=== PATIENT | female | born 2000 | race Two or more races ===

== ENCOUNTER 2023-10-09 10:32 | Outpatient (CLI) | payer OTHER | END 2023-10-09 10:34 | disposition home or self-care (01) | LOC: PRENATAL 10:32 | PROVIDERS: ATTEND Obstetrics & Gynecology Maternal & Fetal Medicine | DX: O36.80X0 Pregnancy with inconclusive fetal viability, not applicable or unspecified (principal); Z36.82 Encounter for antenatal screening for nuchal translucency; Z36.9 Encounter for antenatal screening, unspecified; O99.341 Other mental disorders complicating pregnancy, first trimester; Z3A.12 12 weeks gestation of pregnancy ==

== ENCOUNTER → 2023-12-02 | Outpatient (CLI) | payer OTHER | END | disposition home or self-care (01) | LOC: PRENATAL 08:02 | PROVIDERS: ATTEND Obstetrics & Gynecology Maternal & Fetal Medicine | DX: O44.00 Complete placenta previa NOS or without hemorrhage, unspecified trimester (principal); Z3A.20 20 weeks gestation of pregnancy ==

== ENCOUNTER 2024-01-01 15:18 | Outpatient (CLI) | payer OTHER ==
[2024-01-01 16:10] VITALS: BP 105/68
[2024-01-01] MEDS ORDERED: PRENATABS RX T1 EACH PO (16:50)
[2024-01-01] MEDS ORDERED: SERTRALINE20 MG/1 ML PO (16:51)
[2024-01-01 17:39] LABS: URINE APPEARANCE Clear; URINE BILIRRUBIN Negative (NEGATIVE); URINE BLOOD Moderate; URINE COLOR Yellow; URINE GLUCOSE Negative (NEGATIVE); URINE KETONE Trace (NEGATIVE); URINE LEUKOCYTE Trace; URINE NITRATE Negative; URINE PROTEIN Negative (NEGATIVE)
[2024-01-01 17:43] LABS: HEMATOCRIT 31.2 % (36.0-45.00); HEMOGLOBIN 10.7 g/dL (12.0-15.00); MEAN CELL VOLUME 90.1 fL (80.00-100.00); MEAN CORPUSCULAR HEMOGLOBIN 30.8 pg (27.00-32.0); MEAN CORPUSCULAR HGB CONC 34.2 g/dl (32.0-36.0); PLATELET COUNT 232 K/uL (150-450); RED BLOOD COUNT 3.46 M/uL (4.00-6.00); RED CELL DISTRIBUTION WIDTH 12.9 % (11.5-14.5)
[2024-01-01 17:43] LABS: URINE BACTERIA 1586.2 uL (0.0-1933); URINE EPITHELIAL CELLS 20.7 uL (0.0-38.8); URINE WBC 22.2 uL (0.0-23.2)
[2024-01-01 17:47] LABS: URINE CAST 0.15 uL (0.0-1.40)
[2024-01-01 18:01] LABS: INR < 0.93; PARTIAL THROMBOPLASTIN TIME 27.3 SECONDS (22.0-34.0); PROTHROMBIN TIME 10.1 SECONDS (9.0-11.5)
[2024-01-01 19:55] VITALS: BP 94/56
[2024-01-01 23:20] VITALS: BP 91/60
[2024-01-02 03:58] VITALS: BP 90/60
[2024-01-02 06:01] VITALS: BP 90/57; O2SAT 98
[2024-01-02 13:51] VITALS: BP 118/75
== END 2024-01-02 14:05 | disposition home or self-care (01) ==
LOC: OBS/DEL 15:18
PROVIDERS: ATTEND Obstetrics & Gynecology
DX: O26.893 Other specified pregnancy related conditions, third trimester (principal); O26.849 Uterine size-date discrepancy, unspecified trimester; O26.859 Spotting complicating pregnancy, unspecified trimester; O60.00 Preterm labor without delivery, unspecified trimester; O44.00 Complete placenta previa NOS or without hemorrhage, unspecified trimester; Z3A.25 25 weeks gestation of pregnancy

== ENCOUNTER 2024-01-14 08:34 | Outpatient (CLI) | payer OTHER ==
[~2024-01-14 08:34] MED LIST: PRENATABS RX T1 EACH PO; SERTRALINE20 MG/1 ML PO
== END 2024-01-14 08:35 | disposition home or self-care (01) ==
LOC: LAB 08:34
PROVIDERS: ATTEND Obstetrics & Gynecology
DX: Z34.02 Encounter for supervision of normal first pregnancy, second trimester (principal); Z3A.25 25 weeks gestation of pregnancy

== ENCOUNTER 2024-02-02 18:40 | Inpatient (IN) | payer OTHER ==
[~2024-02-02] VITALS: Ht 167.6 cm; Wt 77.6 kg
[2024-02-02 17:12] VITALS: BP 93/58
[2024-02-02] MEDS ORDERED: RINGERS SOLUTION,LACTATED 1,000 ML IV SCH (18:45)
[2024-02-02 19:03] LABS: HEMATOCRIT 32.2 % (36.0-45.00); HEMOGLOBIN 11.2 g/dL (12.0-15.00); MEAN CELL VOLUME 89.4 fL (80.00-100.00); MEAN CORPUSCULAR HGB CONC 34.7 g/dl (32.0-36.0); PLATELET COUNT 215 K/uL (150-450); RED CELL DISTRIBUTION WIDTH 12.8 % (11.5-14.5)
[2024-02-02 19:32] LABS: INR < 0.93; PARTIAL THROMBOPLASTIN TIME 26.8 SECONDS (22.0-34.0)
[2024-02-02 19:33] LABS: PH,URINE 6.5 (5.0-8.0); URINE APPEARANCE Turbid; URINE BILIRRUBIN Small (NEGATIVE); URINE BLOOD Large; URINE COLOR Red; URINE GLUCOSE Negative (NEGATIVE); URINE KETONE Negative (NEGATIVE); URINE LEUKOCYTE Small; URINE NITRATE Negative
[2024-02-02 19:36] LABS: ALBUMIN 2.9 gm/dL (3.4-5.0); BILIRUBIN TOTAL 0.25 mg/dL (0.3-1.2); CALCIUM 8.7 mg/dL (8.5-10.1); CREATININE SERUM 0.49 mg/dL (0.55-1.02); GFR 156.5; GLOBULINA 3.3 G/DL (2.4-3.5); POTASSIUM 4.02 mEq/L (3.5-5.1); TOTAL PROTEIN 6.2 gm/dL (6.4-8.2); URINE EPITHELIAL CELLS 185.7 uL (0.0-38.8); URINE RBC 35.4 uL (0.0-20.8); URINE WBC 101.4 uL (0.0-23.2)
[2024-02-02 19:55] LABS: URINE BACTERIA > 9821.5 uL (0.0-1933); URINE CAST 0.58 uL (0.0-1.40); URINE PROTEIN 100 (NEGATIVE)
[2024-02-02 19:56] LABS: URINE CRYSTALS MANY /HPF
[2024-02-03] VITALS (8 sets, daily range): BP systolic 91–99; BP diastolic 50–63; O2SAT 98
[2024-02-04 03:31] VITALS: BP 109/67
[2024-02-04 06:14] VITALS: BP 90/60; O2SAT 99
[2024-02-04 11:57] VITALS: BP 96/62; O2SAT 98
[2024-02-04 13:10] VITALS: BP 111/75
[2024-02-04 16:51] VITALS: BP 119/65
[2024-02-05 00:31] VITALS: BP 104/69
[2024-02-05 08:00] VITALS: BP 111/75
== END 2024-02-05 09:50 | disposition home or self-care (01) | DRG 831 ==
LOC: OBS/DEL 18:40 → LDR 02-03 20:35 → OB/GYN 02-03 20:35 → O/R 02-04 09:05 → LDR 02-04 09:06 → OB/GYN 02-04 10:05
PROVIDERS: Obstetrics & Gynecology; ADMIT Obstetrics & Gynecology; ATTEND Obstetrics & Gynecology
PROC: 4A1HXCZ Monitoring of Products of Conception, Cardiac Rate, External Approach (ICD-10-PCS; principal; 2024-02-03)
PROC: BY4FZZZ Ultrasonography of Third Trimester, Single Fetus (ICD-10-PCS; 2024-02-03)
PROC: BU4CZZZ Ultrasonography of Uterus and Ovaries (ICD-10-PCS; 2024-02-03)
DX: O46.8X3 Other antepartum hemorrhage, third trimester (principal); O60.03 Preterm labor without delivery, third trimester; O26.843 Uterine size-date discrepancy, third trimester; O36.8130 Decreased fetal movements, third trimester, not applicable or unspecified; O99.343 Other mental disorders complicating pregnancy, third trimester; F43.10 Post-traumatic stress disorder, unspecified; O36.63X0 Maternal care for excessive fetal growth, third trimester, not applicable or unspecified; O26.853 Spotting complicating pregnancy, third trimester; Z3A.29 29 weeks gestation of pregnancy; Z20.822 Contact with and (suspected) exposure to COVID-19

== ENCOUNTER → 2024-03-23 08:18 | Outpatient (CLI) | payer OTHER | END | disposition home or self-care (01) | LOC: PRENATAL 08:18 | PROVIDERS: ATTEND Obstetrics & Gynecology Maternal & Fetal Medicine | DX: O26.849 Uterine size-date discrepancy, unspecified trimester (principal); O36.8199 Decreased fetal movements, unspecified trimester, other fetus; O28.3 Abnormal ultrasonic finding on antenatal screening of mother; O98.919 Unspecified maternal infectious and parasitic disease complicating pregnancy, unspecified trimester; Z3A.37 37 weeks gestation of pregnancy ==

== ENCOUNTER 2024-03-30 08:52 | Inpatient (IN) | payer OTHER ==
[~2024-03-30] VITALS: Ht 167.6 cm; Wt 2.3 kg
[2024-03-30 08:30] VITALS: BP 126/83
[2024-03-30 09:50] LABS: HEMATOCRIT 34.9 % (36.0-45.00); HEMOGLOBIN 12.2 g/dL (12.0-15.00); MEAN CELL VOLUME 86.8 fL (80.00-100.00); MEAN CORPUSCULAR HEMOGLOBIN 30.2 pg (27.00-32.0); MEAN CORPUSCULAR HGB CONC 34.8 g/dl (32.0-36.0); PLATELET COUNT 209 K/uL (150-450); RED BLOOD COUNT 4.02 M/uL (4.00-6.00); RED CELL DISTRIBUTION WIDTH 13.8 % (11.5-14.5)
[2024-03-30 09:51] LABS: URINE APPEARANCE Cloudy; URINE BILIRRUBIN Negative (NEGATIVE); URINE BLOOD Large; URINE COLOR Yellow; URINE GLUCOSE Negative (NEGATIVE); URINE KETONE Negative (NEGATIVE); URINE LEUKOCYTE Small; URINE NITRATE Negative; URINE PROTEIN 30 (NEGATIVE); URINE UROBILINOGEN 0.2 E.U./dl
[2024-03-30 10:00] LABS: URINE BACTERIA 2090.4 uL (0.0-1933); URINE EPITHELIAL CELLS 27.3 uL (0.0-38.8); URINE RBC 62.8 uL (0.0-20.8); URINE WBC 119.1 uL (0.0-23.2)
[2024-03-30 10:48] LABS: INR < 0.93; PARTIAL THROMBOPLASTIN TIME 26.8 SECONDS (22.0-34.0); PROTHROMBIN TIME 9.9 SECONDS (9.0-11.5)
[2024-03-30 11:02] LABS: CALCIUM 9.3 mg/dL (8.5-10.1); CREATININE SERUM 0.57 mg/dL (0.55-1.02); GFR 131.44; POTASSIUM 4.16 mEq/L (3.5-5.1)
[2024-03-30 11:53] VITALS: BP 131/79
[2024-03-30] MEDS ORDERED: MORPHINE SULFATE 4 MG/ML CARTRIDGE IV ONE (12:00)
[2024-03-30] MEDS ORDERED: OXYTOCIN 10 UNITS/ML VIAL ONE ×2 (13:14→16:05)
[2024-03-30] MEDS ORDERED: ERYTHROMYCIN BASE OPHT 1GM EACH TUBE OP ONE (13:14)
[2024-03-30] MEDS ORDERED: MORPHINE SULFATE 4 MG/ML CARTRIDGE IV PRN (14:00)
[2024-03-30] MEDS ORDERED: RINGERS SOLUTION,LACTATED 1,000 ML IV SCH (16:00)
[2024-03-30] MEDS ORDERED: OXYTOCIN 1,000 ML IV SCH (16:00)
[2024-03-30] MEDS ORDERED: MORPHINE SULFATE 4 MG/ML VIAL IV ONE (16:05)
[2024-03-30 16:56] VITALS: BP 114/73
[2024-03-30] MEDS ORDERED: DOCUSATE SODIUM 100MG CAP PO SCH (17:00)
[2024-03-30] MEDS ORDERED: SIMETHICONE 125 MG CAPSULE PO SCH (18:00)
[2024-03-30 18:58] LABS: HEMATOCRIT 36.9 % (36.0-45.00); HEMOGLOBIN 12.2 g/dL (12.0-15.00); MEAN CELL VOLUME 89.1 fL (80.00-100.00); MEAN CORPUSCULAR HEMOGLOBIN 29.4 pg (27.00-32.0); PLATELET COUNT 207 K/uL (150-450); RED BLOOD COUNT 4.14 M/uL (4.00-6.00); RED CELL DISTRIBUTION WIDTH 13.5 % (11.5-14.5)
[2024-03-30 20:30] VITALS: BP 112/64
[2024-03-31] VITALS: BP 118/73
[2024-03-31 08:45] VITALS: BP 120/75
[2024-03-31] MEDS ORDERED: IBUprofen 800 MG TABLET PO SCH (09:00)
[2024-04-01] VITALS: BP 116/73
[2024-04-01 08:42] VITALS: BP 128/71
[2024-04-01 19:00] VITALS: BP 117/81
[2024-04-01 21:16] VITALS: BP 106/70
[2024-04-02 01:32] VITALS: BP 107/69
[2024-04-02 07:33] VITALS: BP 100/65
== END 2024-04-02 11:57 | disposition home or self-care (01) | DRG 787 ==
LOC: O/R 08:52 → OB/GYN 08:52 → LDR 08:52 → O/R 13:43 → OB/GYN 14:59
PROVIDERS: ADMIT Obstetrics & Gynecology; ATTEND Obstetrics & Gynecology
PROC: 4A1HXCZ Monitoring of Products of Conception, Cardiac Rate, External Approach (ICD-10-PCS; 2024-03-30)
PROC: 10D00Z1 Extraction of Products of Conception, Low, Open Approach (ICD-10-PCS; principal; 2024-03-30 14:45)
DX: O98.52 Other viral diseases complicating childbirth (principal); B00.89 Other herpesviral infection; O64.0XX0 Obstructed labor due to incomplete rotation of fetal head, not applicable or unspecified; O35.19X0 Maternal care for (suspected) chromosomal abnormality in fetus, other chromosomal abnormality, not applicable or unspecified; Z3A.37 37 weeks gestation of pregnancy; Z37.0 Single live birth

== ENCOUNTER 2024-04-05 16:01 | Emergency (ER) | payer OTHER ==
[~2024-04-05] VITALS: Ht 167.6 cm; Wt 83.0 kg
[2024-04-05] MEDS ORDERED: PIPERACILLIN/TAZOBACTAM SODIUM 3.375 GM VIAL IV ONE (16:59)
[2024-04-05] MEDS ORDERED: ACETAMINOPHEN 325 MG TABLET PO ONE (16:59)
[2024-04-05] MEDS ORDERED: FAMOTIDINE/PF 20 MG/2 ML VIAL ONE (16:59)
[2024-04-05] MEDS ORDERED: FAMOtidine 10 MG/ML (4ML VIAL) IV ONE (17:00)
[2024-04-05] MEDS ORDERED: ACETAMINOPHEN 325 MG TABLET PO SCH (17:00)
[2024-04-05] MEDS ORDERED: 0.9 % SODIUM CHLORIDE 1,000 ML IV ONE (17:00)
[2024-04-05 17:36] LABS: HEMATOCRIT 34.9 % (36.0-45.00); HEMOGLOBIN 12.1 g/dL (12.0-15.00); MEAN CELL VOLUME 87.2 fL (80.00-100.00); MEAN CORPUSCULAR HEMOGLOBIN 30.2 pg (27.00-32.0); MEAN CORPUSCULAR HGB CONC 34.6 g/dl (32.0-36.0); PLATELET COUNT 316 K/uL (150-450); RED CELL DISTRIBUTION WIDTH 13.7 % (11.5-14.5)
[2024-04-05 17:49] LABS: INR 0.97; PARTIAL THROMBOPLASTIN TIME 30.4 SECONDS (22.0-34.0); PROTHROMBIN TIME 10.6 SECONDS (9.0-11.5)
[2024-04-05 17:54] LABS: ALBUMIN 2.8 gm/dL (3.4-5.0); BILIRUBIN TOTAL 0.31 mg/dL (0.3-1.2); CALCIUM 9.5 mg/dL (8.5-10.1); CREATININE SERUM 0.65 mg/dL (0.55-1.02); GFR 112.95; POTASSIUM 3.76 mEq/L (3.5-5.1); TOTAL PROTEIN 7.8 gm/dL (6.4-8.2)
[2024-04-05] MEDS ORDERED: PIPERACILLIN/TAZOBACTAM SODIUM 3.375 GM VIAL IV SCH (18:00)
[2024-04-05 18:01] LABS: URINE APPEARANCE Turbid; URINE BILIRRUBIN Negative (NEGATIVE); URINE BLOOD Large; URINE COLOR Yellow; URINE GLUCOSE Negative (NEGATIVE); URINE KETONE Negative (NEGATIVE); URINE LEUKOCYTE Large; URINE NITRATE Negative; URINE UROBILINOGEN 0.2 E.U./dl
[2024-04-05 18:05] LABS: URINE EPITHELIAL CELLS 125.5 uL (0.0-38.8); URINE RBC 34.9 uL (0.0-20.8)
[2024-04-05 18:19] LABS: URINE BACTERIA > 9821.5 uL (0.0-1933); URINE CAST 0.88 uL (0.0-1.40); URINE PROTEIN 100 (NEGATIVE); URINE WBC > 5548.3 uL (0.0-23.2)
[2024-04-06] MEDS ORDERED: PIPERACILLIN/TAZOBACTAM SODIUM 3.375 GM VIAL IV ONE ×3 (00:42→06:09)
[2024-04-06] MEDS ORDERED: ACETAMINOPHEN 325 MG TABLET PO ONE (00:43)
[2024-04-06] MEDS ORDERED: AMOXICILLIN (20:34)
== END 2024-04-06 08:58 | disposition home or self-care (01) ==
LOC: ER 16:04
PROVIDERS: General Practice
DX: O86.01 Infection of obstetric surgical wound, superficial incisional site (principal)
CPT/HCPCS: 36415; 71045; 96365; 96366; 99283; J2543; J3490; J7030

== ENCOUNTER 2024-04-06 20:09 | Inpatient (IN) | payer OTHER ==
[~2024-04-06] VITALS: Ht 167.6 cm; Wt 83.0 kg
[2024-04-06 20:32] VITALS: O2SAT 100
[2024-04-06] MEDS ORDERED: AMOXICILLIN (20:34)
--- NOTE | 2024-04-06 20:35 | NUR ---
PTE ALERTA Y ORIENTADA X3 REFIERE QUE MARREO LE HIZO CESAREA 1 SEMANA. LA MISMA REFIERE QUE HOY EMPESO A BOTAR PU Y NUVIA. SE MIDEN S/V Y SE UBICA.
[2024-04-06] MEDS ORDERED: PIPERACILLIN/TAZOBACTAM SODIUM 3.375 GM VIAL IV SCH (20:48)
[2024-04-06] MEDS ORDERED: PIPERACILLIN/TAZOBACTAM SODIUM 3.375 GM VIAL IV ONE (20:54)
[2024-04-06] MEDS ORDERED: FAMOTIDINE/PF 20 MG/2 ML VIAL ONE (20:55)
[2024-04-06] MEDS ORDERED: FAMOtidine 10 MG/ML (4ML VIAL) IV ONE (21:00)
[2024-04-06] MEDS ORDERED: 0.9 % SODIUM CHLORIDE 1,000 ML IV ONE ×2 (21:00→23:15)
[2024-04-06 21:25] LABS: HEMATOCRIT 31.4 % (36.0-45.00); HEMOGLOBIN 10.6 g/dL (12.0-15.00); MEAN CELL VOLUME 88.6 fL (80.00-100.00); MEAN CORPUSCULAR HEMOGLOBIN 29.9 pg (27.00-32.0); MEAN CORPUSCULAR HGB CONC 33.7 g/dl (32.0-36.0); PLATELET COUNT 287 K/uL (150-450); RED BLOOD COUNT 3.54 M/uL (4.00-6.00); RED CELL DISTRIBUTION WIDTH 13.5 % (11.5-14.5)
--- NOTE | 2024-04-06 21:27 | NUR ---
SE ORIENTA A PTE SOBRE TX MEDICO ORDENADO POR . SE REALIZA GUSTAVO DE MUESTRAS DE LAB JULIO C ORDEN MEDICA Y BAJO MEDIDAS ASEPTICAS. VENOPUNCION PATENTE BAJANDO IV FLUIDS POR REGULADOR. SE ADMINISTRAN MEDICAMENTOS JULIO C ORDEN MEDICA Y SE ORIENTA. SE NOTIFICA ESTUDIO ORDENADO. SE REALIZA CULTIVO DE HERIDA, PENDIENTE A ADMISION PARA JUSTIDFICAR LA ORDEN MEDICA.
[2024-04-06 21:34] LABS: ERYTHROCYTE SEDIMENTATION RATE 85 mm/hr
[2024-04-06 21:48] LABS: INR 1.05; PARTIAL THROMBOPLASTIN TIME 31.9 SECONDS (22.0-34.0); PROTHROMBIN TIME 11.4 SECONDS (9.0-11.5)
[2024-04-06 21:59] LABS: ALBUMIN 2.5 gm/dL (3.4-5.0); BILIRUBIN TOTAL 0.35 mg/dL (0.3-1.2); CREATININE SERUM 0.64 mg/dL (0.55-1.02); GFR 114.99; GLOBULINA 4.4 G/DL (2.4-3.5); POTASSIUM 3.27 mEq/L (3.5-5.1); TOTAL PROTEIN 6.9 gm/dL (6.4-8.2)
[2024-04-06] MEDS ORDERED: 0.9 % SODIUM CHLORIDE 1,000 ML IV SCH (23:15)
[2024-04-06] MEDS ORDERED: ACETAMINOPHEN 500 MG GEL..CAP PO PRN (23:15)
[2024-04-07 00:49] LABS: URINE APPEARANCE Cloudy; URINE BILIRRUBIN Negative (NEGATIVE); URINE BLOOD Large; URINE COLOR Yellow; URINE GLUCOSE Negative (NEGATIVE); URINE KETONE Negative (NEGATIVE); URINE LEUKOCYTE Large; URINE NITRATE Negative; URINE PROTEIN Trace (NEGATIVE)
[2024-04-07 00:59] LABS: URINE EPITHELIAL CELLS 50.8 uL (0.0-38.8); URINE RBC 65.5 uL (0.0-20.8); URINE WBC 982.4 uL (0.0-23.2)
[2024-04-07 01:18] LABS: URINE CAST 0.14 uL (0.0-1.40)
[2024-04-07] MEDS ORDERED: PIPERACILLIN/TAZOBACTAM SODIUM 3.375 GM VIAL IV ONE (04:27)
[2024-04-07 05:54] VITALS: BP 107/72
[2024-04-07 06:35] LABS: INR 1.05; PARTIAL THROMBOPLASTIN TIME 31.6 SECONDS (22.0-34.0); PROTHROMBIN TIME 11.4 SECONDS (9.0-11.5)
[2024-04-07 07:55] VITALS: BP 90/60
[2024-04-07] MEDS ORDERED: FAMOTIDINE/PF 20 MG in 0.9 % SODIUM CHLORIDE 8 ML IV PUSH SCH (09:00)
[2024-04-07] MEDS ORDERED: LINEZOLID IN DEXTROSE 5% 600 MG/300 ML PIGGYBAG IV STA (15:34)
[2024-04-07 16:28] VITALS: BP 105/73
[2024-04-07] MEDS ORDERED: CHLORHEXIDINE GLUCONATE 120 ML BOTTLE TOP SCH (17:00)
[2024-04-07] MEDS ORDERED: LACTOBACILLUS ACIDOPHILUS 1 CAP CAP PO SCH (17:00)
[2024-04-08 03:30] VITALS: BP 110/68
[2024-04-08] MEDS ORDERED: LINEZOLID IN DEXTROSE 5% 600 MG/300 ML PIGGYBAG IV SCH (05:00)
[2024-04-08] MEDS ORDERED: FAMOTIDINE/PF 20 MG/2 ML VIAL ONE (07:39)
[2024-04-08 08:11] VITALS: BP 112/76
[2024-04-08 15:54] VITALS: BP 111/75
[2024-04-08] MEDS ORDERED: FAMOtidine 20 MG TABLET PO SCH (21:00)
[2024-04-09 02:01] VITALS: BP 120/81
[2024-04-09 08:00] VITALS: BP 109/76
[2024-04-09 15:34] VITALS: BP 112/76
[2024-04-09] MEDS ORDERED: LINEZOLID 600 MG TABLET PO SCH (17:00)
== END 2024-04-09 17:16 | disposition home or self-care (01) | DRG 776 ==
LOC: ER 20:11 → OB/GYN 23:06
PROVIDERS: General Practice; ADMIT Obstetrics & Gynecology; ATTEND Obstetrics & Gynecology
PROC: BW21ZZZ Computerized Tomography (CT Scan) of Abdomen and Pelvis (ICD-10-PCS; principal; 2024-04-06)
PROC: 8E0ZXY6 Isolation (ICD-10-PCS; 2024-04-07)
DX: O86.01 Infection of obstetric surgical wound, superficial incisional site (principal); B00.89 Other herpesviral infection